=== PATIENT | male | born 1945 | race Caucasian/White ===

== ENCOUNTER → 2016-11-15 | Outpatient (CLI) | payer OTHER, MEDICARE | LOC: BHLMT 10:30 | PROVIDERS: ATTEND Internal Medicine Cardiovascular Disease | DX: I10 Essential (primary) hypertension (principal); E78.00 Pure hypercholesterolemia, unspecified; R42 Dizziness and giddiness | CPT/HCPCS: 93005-PO ==

== ENCOUNTER → 2018-07-22 | Outpatient (CLI) | payer OTHER, MEDICARE | LOC: FIMAGING 10:36 | PROVIDERS: ATTEND Neurological Surgery | DX: M51.16 Intervertebral disc disorders with radiculopathy, lumbar region (principal); M51.37 Other intervertebral disc degeneration, lumbosacral region; M53.2X6 Spinal instabilities, lumbar region; M46.96 Unspecified inflammatory spondylopathy, lumbar region; M46.97 Unspecified inflammatory spondylopathy, lumbosacral region; I70.0 Atherosclerosis of aorta ==